=== PATIENT | male | born 1950 | race Caucasian/White ===

== ENCOUNTER 2018-09-23 21:45 | Observation (INO) ==
[2018-09-23 23:02] LABS: AGAP 15; ALB/GLOB RATIO 2.1; ALBUMIN 4.6 g/dL (3.5-5.0); ALKALINE PHOSPHATASE 75 U/L (32-122); BUN 12 mg/dL (8-22); CALCIUM 9.5 mg/dL (8.8-10.2); CHLORIDE 108 mmol/L (98-107); CK PROFILE 162 U/L (24-204); COSMO 290; ESTIMATED GFR > 60; GLUCOSE 125 mg/dL (70-104); GOT 38 U/L (10-34); GPT 39 U/L (10-44); POTASSIUM 4.2 mmol/L (3.5-5.1); SODIUM 145 mmol/L (136-145); TCO2 22 mmol/L (25-35); TOTAL BILIRUBIN 0.29 mg/dL (0.20-1.00); TOTAL PROTEIN 6.8 g/dL (6.3-8.3)
[2018-09-23 23:12] LABS: BASO# 0.03 X1000 (0.0-0.2); BASO% 0.3 % (0.0-0.8); EOS# 0.13 X1000 (0.0-0.7); EOS% 1.2 % (0.0-10.0); HEMATOCRIT 47.8 % (42.0-52.0); HEMOGLOBIN 15.8 g/dL (14.0-18.0); LYMPH# 1.12 X1000 (1.2-3.4); LYMPH% 10.3 % (20.5-51.1); MCH 29.9 PG (27-31); MCHC 33.1 g/dL (33-37); MCV 90.4 FL (81-99); MONO# 0.93 X1000 (0.11-0.59); MONO% 8.6 % (1.7-9.3); MPV 11.3 FL (7.4-10.4); NEUT# 8.66 X1000 (1.4-6.5); NEUT% 79.6 % (42.2-75.2); PLT 216 X1000 (130-400); RBC 5.29 XMIL (4.7-6.1); RDW 13.9 % (11.5-14.5); WBC 10.87 X1000 (4.8-10.8)
[2018-09-24] MEDS ORDERED: TYLENOL PO PRN (01:00)
[2018-09-24] MEDS ORDERED: LOVENOX SUBQ SCH (01:00)
[2018-09-24] MEDS ORDERED: ZOFRAN IV PRN (01:00)
[2018-09-24] MEDS ORDERED: NITROGLYCERIN SL PRN (01:00)
[2018-09-24] MEDS ORDERED: MORPHINE IV PRN (01:04)
[2018-09-24 01:39] LABS: HEMOGLOBIN A1C 6.1 % (4.8-6.0)
--- NOTE | 2018-09-24 05:42 | HISTORY AND PHYSICAL ---
CHIEF COMPLAINT: Chest pain. PRIMARY CARE PROVIDER: Keyur Mallory. HISTORY OF PRESENT ILLNESS: This is a very pleasant 67-year-old male who comes in tonight with substernal chest pain, did not radiate. He did not have nausea or diaphoresis. It lasted for roughly one hour. He said that it was sharp in nature. He has a torn right rotator cuff that he is about to have surgery on. He stated that he felt as if the pain may have been from his shoulder instead of from his chest, however, around 20-plus years ago he had coronary artery bypass grafting and then two years after that he had an additional episode of chest pain for which he had a stent placed. He was followed by Cardiology some time thereafter and from what he tells me, he was told he did not have to follow-up with Cardiology anymore. He does see Dr. Mallory on a regular basis. His initial laboratory data was unremarkable in the emergency room. He will be admitted in observation status for further evaluation and treatment. PAST MEDICAL HISTORY: 1. Coronary artery disease, status post CABG and stenting. 2. Hypertension. 3. Hyperlipidemia. PREVIOUS SURGICAL HISTORY: 1. CABG. 2. Cardiac stent. 3. Hernia repair. SOCIAL HISTORY: Lives with his daughter. No alcohol. He does not smoke. He does use chewing tobacco, however. No illicit drugs. FAMILY HISTORY: Positive for coronary artery disease and diabetes in first- degree relatives. ALLERGIES: No known drug allergies. HOME MEDICATIONS: A list of home medications has not been obtained. An order was placed for Nursing to reconcile home medications. These will be started when appropriate. REVIEW OF SYSTEMS: Fourteen point review of systems conducted with the patient. Pertinent positives listed above in the HPI. All other systems reviewed and found to be negative. PHYSICAL EXAMINATION: VITAL SIGNS: Temperature 98.2, pulse 69, respirations 18, blood pressure 160/90 , oxygen saturation 98% on room air. GENERAL: Pleasant 67-year-old male lying in the ER stretcher, answers all questions appropriately, is alert and oriented times 3. HEENT: Head is atraumatic, normocephalic. Pupils equal, round, reactive to light. Extraocular eye movement intact. Sclerae are anicteric. Conjunctiva is pink. Oral mucosa is moist. NECK: Supple. No JVD. No thyromegaly. Trachea is midline. No cervical lymphadenopathy. CARDIAC: S1, S2 appreciated. No murmurs, gallops, or rubs. LUNGS: Clear to auscultation bilaterally. No rhonchi, wheezes, rales. Symmetric rise and fall with respirations. ABDOMEN: Soft, nondistended, nontender. Bowel sounds present all 4 quadrants, normoactive. No pulsatile mass. No organomegaly. EXTREMITIES: No clubbing, cyanosis, or edema. Two-plus pedal pulses bilaterally. GENITOURINARY: Patient voids. No bladder distention. Otherwise deferred. NEUROLOGICAL: Alert and oriented times 3. No focal or motor deficits noted. Otherwise nonfocal examination. DIAGNOSTIC DATA: Chest x-ray: No acute disease. EKG: Right bundle branch block. LABORATORY DATA: WBC 10.87. Sodium 145. Potassium 4.2. Chloride 108. Carbon dioxide 22. BUN 12. Creatinine 1. Glucose 125. CK 162. Troponin 0.056. ASSESSMENT AND PLAN: 1. Chest pain. Rule out acute myocardial infarction. Patient has known history of coronary artery disease status post CABG and cardiac stenting. He takes a statin as well as blood pressure medication at home. Will restart these once they are reconciled. Check a lipid profile. Will defer to Dr. Mallory the need for echo or stress testing. 2. Hypertension. Will restart home medications once reconciled. 3. Hyperlipidemia. Restart statin once medications are reconciled in the computer. Check a lipid profile. 4. Mild hyperglycemia. Check hemoglobin A1c. Patient does not have a history of diabetes mellitus. 5. Torn right rotator cuff. Patient is going to have surgery in around two weeks. Will give p.r.n. pain medication. Further recommendations per patient clinical course. Dictated by KSENIA Pang for Chano Salazar MD cc: KSENIA Pang MD P. J. Reddy, MD Independent exam (which was essentially benign) and plan was done by me. Discussed the above plan of care with pt, and INSPECTION ENGINEER. Pt has high heart score and would benefit from further cardiac evaluation and optimization of risk factors. [facility]NOT OGDEN MEDICAL CENTERDallin
[2018-09-24] MEDS: PRILOSEC PO SCH ×2 (06:56→06:57)
--- NOTE | 2018-09-24 07:17 | Diag Imaging Result Doc PS360 ---
EXAM: CHEST-1 VIEW INDICATION: chest pain TECHNIQUE: One view COMPARISON: None. FINDINGS: The lungs are grossly clear. There is no discrete pleural fluid collection or pneumothorax. There are median sternotomy wires. The cardiomediastinal silhouette and central vasculature are grossly unremarkable, otherwise. IMPRESSION: No evidence of acute pathology by plain radiograph. Electronically signed by See Cameron 09/24/2018 7:14 AM
--- NOTE | 2018-09-24 07:19 | EKG Report ---
Test Performed on : 09/24/2018 07:06:27 AM Test Reason : CP Blood Pressure : / mmHG Vent. Rate : 069 BPM Atrial Rate : 069 BPM P-R Int : 142 ms QRS Dur : 132 ms QT Int : 424 ms P-R-T Axes : 062 -75 050 degrees QTc Int : 454 ms Normal sinus rhythm. with sinus arrhythmia. Possible Left atrial enlargement Right bundle branch block Left anterior fascicular block Bifascicular block Inferior infarct , age undetermined T wave abnormality, consider lateral ischemia Abnormal ECG When compared with ECG of 24-SEP-2018 00:18, (Unconfirmed) No significant change was found Unconfirmed Result
--- NOTE | 2018-09-24 07:22 | EKG Report ---
Test Performed on : 09/24/2018 00:18:39 AM Test Reason : chest pain Blood Pressure : / mmHG Vent. Rate : 066 BPM Atrial Rate : 066 BPM P-R Int : 140 ms QRS Dur : 134 ms QT Int : 446 ms P-R-T Axes : 060 -60 008 degrees QTc Int : 467 ms Normal sinus rhythm. Possible Left atrial enlargement Right bundle branch block Left anterior fascicular block Bifascicular block T wave abnormality, consider lateral ischemia Abnormal ECG When compared with ECG of 23-SEP-2018 22:01, (Unconfirmed) premature atrial complexes. are no longer present T wave inversion now evident in Anterolateral leads Unconfirmed Result
--- NOTE | 2018-09-24 07:36 | EKG Report ---
Test Performed on : 09/23/2018 10:01:50 PM Test Reason : CP Blood Pressure : / mmHG Vent. Rate : 072 BPM Atrial Rate : 072 BPM P-R Int : 138 ms QRS Dur : 134 ms QT Int : 428 ms P-R-T Axes : 038 -54 026 degrees QTc Int : 468 ms Sinus rhythm. with premature atrial complexes. Right bundle branch block Left anterior fascicular block Bifascicular block Abnormal ECG No previous ECGs available Unconfirmed Result
[2018-09-24] MEDS ORDERED: ASPIRIN PO SCH ×2 (09:00→10:15)
[2018-09-24 11:43] LABS: CK INDEX 10.1 (0.0-2.5); CK-MB 48.36 ng/mL (0.0-5.0)
[2018-09-24] MEDS: ASPIRIN PO SCH (11:45)
--- NOTE | 2018-09-24 11:48 | CARDIOLOGY CONSULTATION ---
DATE: 09/24/2018 HISTORY OF PRESENT ILLNESS: Mr. Cornelio Neal is a 67-year-old gentleman with a history of coronary artery disease, coronary artery bypass grafting, and this was in 1996 in [place]. Had the right coronary angioplasty in 1997 in [place]. He comes with complaints of having retrosternal chest discomfort with radiation to the right shoulder. He also has rotator cuff issues and torn on the right shoulder. Chest discomfort is retrosternal, lasted for about 20 minutes before he decided to come to the emergency room. Currently, he is pain-free. Chest pain not associated with any significant diaphoresis; however, he has been very active, never had retrosternal chest discomfort like this in the last so many years. He walks about 5 miles at least 3 to 4 times a week, and he is very active, goes hunting as well. REVIEW OF SYSTEM: General: A 14-point review of systems was done. GI system: There is no history of nausea, vomiting, diarrhea. There is no history of hematemesis or melena. Central nervous system: No focal weakness to suggest a CVA or TIA. system: There is no dysuria or hematuria. PAST MEDICAL HISTORY: 1. Coronary artery disease, status post 2-vessel coronary artery bypass grafting in [place]. This was in 1996. 2. In 1997, had angioplasty, stenting to the right coronary artery. 3. Hypertension. 4. Hyperlipidemia. 5. Rotator cuff right tear. 6. Hypertension. He is retired, lives with his daughter, very active. ALLERGIES: He is not known to be allergic to any medication. FAMILY HISTORY: Multiple family members have had coronary artery disease. PHYSICAL EXAMINATION: Vital Signs: Blood pressure was 159/76, heart rate 70. Cardiovascular system: Normal jugular venous pressure. There no thyromegaly. There is no carotid bruit. First and second heart sounds were heard. There is no S3, S4, gallop. Respiratory system: Normal air entry. There are no crepitations or rhonchi. Abdomen: Soft, nontender. There was no guarding or rigidity. Bowel sounds were heard. Central nervous system: Alert and was moving all 4 extremities. Examination of extremities revealed no pedal edema. HEENT: Atraumatic, normocephalic. Pupils were equal and reacting to light. ASSESSMENT AND PLAN: Mr. Cornelio Neal is a 67-year-old gentleman with history of hypertension, hyperlipidemia, coronary artery disease, status post coronary artery bypass grafting two-vessel 1996 followed by right coronary artery stenting in 1997, who comes with complaints of retrosternal chest discomfort. He has abnormal cardiac enzymes with a troponin of 0.162. Patient has non-Q-wave myocardial infarction. RECOMMENDATIONS: 1. We will plan for left heart catheterization. 2. In addition to aspirin, we will put him on Lovenox 1 mg/kg subcutaneous twice daily. 3. We will also add beta-blockers 25 mg twice daily to his medical regimen and Lipitor 40 mg to his medical regimen. 4. He also has torn right rotator cuff and management for that will defer. He was supposed to have surgery in a couple of weeks. However, we will plan for left heart catheterization tomorrow as discussed above. cc: MD Chano Vitale MD
[2018-09-24] MEDS: LOVENOX SUBQ SCH ×2 (11:56→22:47)
[2018-09-24] MEDS: LOPRESSOR PO SCH ×2 (11:56→22:01)
[2018-09-24 12:15] LABS: INR 0.93; PROTIME 13.3 Seconds (11.0-16.0)
--- NOTE | 2018-09-24 14:13 | ECHO REPORT ---
ORDER DATE: 09/24/2018 INDICATION: Embolism. FINDINGS: 1. The right atrium appears normal in size at 2.9 cm. 2. Mild tricuspid regurgitation. RV systolic pressure of 30. 3. Normal RV size and systolic function. 4. Mild pulmonic insufficiency. 5. Mild left atrial enlargement with a volume index of 28. 6. No mitral valve prolapse. There is mild mitral regurgitation. 7. A dilated left ventricle with an end-diastolic dimension of 5.8 cm. Normal wall thicknesses with a posterior and interventricular septal wall thickness of 0.9 cm each. Severely reduced LV systolic function with an estimated EF of 20%. The more apical portions of the anterior, lateral, inferior, and septal wall appear hypokinetic to akinetic with more prominent basilar hyperkinesis in all ya. This could be consistent with a possible Takotsubo type picture in the correct clinical situation. There does not appear to be any clear evidence of LV apical thrombus on this study. 8. The aortic valve opens well. It is trileaflet. There is mild insufficiency. No stenosis. 9. Aorta appears normal in visualized segments. 10. No pericardial effusion seen. cc: MD Paul Monroe MD Olakunle P. Akinsoto, MD
--- NOTE | 2018-09-24 19:41 | PROGRESS NOTE ---
DATE: 09/25/2018 SUBJECTIVE: A 67-year-old white male admitted to the hospital last night on the floor with chest pain. Currently pain free. Initial EKG has normal sinus with right bundle. Subsequent EKG showed T-wave inversion in the lateral precordial leads, and he had a bump in the CK and troponin. Denies any chest pain or shortness of breath. PAST MEDICAL HISTORY: Reviewed. PAST SURGICAL HISTORY: Reviewed. MEDICINES: Reviewed. ALLERGIES: Not known. OBJECTIVE: Vital Signs: Temperature is 98 degrees, pulse is 60, blood pressure 143/81. HEENT Exam: Within normal limits. JVD is normal. Chest: Bilateral air entry. Cardiovascular: Heart sounds are regular. No murmur. Abdomen: Belly is soft, nontender. Extremities: No peripheral edema noted. INVESTIGATIONS: CBC: White cell count 10, hematocrit 47, platelets 216,000, PT 13, INR 0.93. Initial cardiac enzymes are negative. Subsequent CK and troponin were positive. A1c 6.1. Cholesterol 157, LDL 108. ASSESSMENT AND PLAN: 1. A 67-year-old white male with existing heart disease, status post bypass in [place] 20 years ago came in with chest pain, atypical pain-free ruled in non-Q myocardial infarction. Discussed with the patient. We will transfer to the step-down unit. I did call the propulsion systems engineer developmental education instructor, Dr. Sears, probably will need a left heart catheterization. In the meantime, we will continue on aspirin, Lovenox 80 subcutaneous b.i.d., metoprolol 25 p.o. b.i.d., nitroglycerin as needed and morphine for pain. Also check the echocardiography. 2. Hyperlipidemia on Lipitor. 3. Hypertension on ramipril 2.5 daily. 4. Appreciate Cardiology consult. The patient is n.p.o. LEVEL OF DOCUMENTATION: 35 minutes. cc: MD Chano Singh MD MTDD
[2018-09-24] MEDS: LIPITOR PO SCH (22:01)
[2018-09-25 06:05] LABS: AGAP 10; BUN 15 mg/dL (8-22); CALCIUM 9.3 mg/dL (8.8-10.2); CHLORIDE 104 mmol/L (98-107); COSMO 283; CREATININE 0.9 mg/dL (0.7-1.2); ESTIMATED GFR > 60; GLUCOSE 120 mg/dL (70-104); MAGNESIUM 2.1 mg/dL (1.5-2.7); POTASSIUM 4.2 mmol/L (3.5-5.1); SODIUM 141 mmol/L (136-145); TCO2 27 mmol/L (25-35)
--- NOTE | 2018-09-25 08:00 | EKG Report ---
Test Performed on : 09/25/2018 07:33:42 AM Test Reason : chest pain Blood Pressure : / mmHG Vent. Rate : 058 BPM Atrial Rate : 058 BPM P-R Int : 160 ms QRS Dur : 138 ms QT Int : 528 ms P-R-T Axes : 040 -61 210 degrees QTc Int : 518 ms Sinus bradycardia. Right bundle branch block Left anterior fascicular block Bifascicular block Inferior infarct (cited on or before 24-SEP-2018) Marked T wave abnormality, consider lateral ischemia Abnormal ECG When compared with ECG of 24-SEP-2018 07:06, Inverted T waves have replaced nonspecific T wave abnormality in Inferior leads T wave inversion more evident in Anterolateral leads QT has lengthened Unconfirmed Result
[2018-09-25] MEDS ORDERED: HEPARIN 1000 UNITS/NS 2,000 UNIT/1,000 ML IV.SOLN ONE (08:11)
[2018-09-25] MEDS: PRILOSEC PO SCH (08:47)
[2018-09-25] MEDS: LOPRESSOR PO SCH ×2 (08:47→21:06)
[2018-09-25] MEDS: ASPIRIN PO SCH (08:48)
[2018-09-25 09:11] LABS: CK INDEX 5.2 (0.0-2.5); CK-MB 11.98 ng/mL (0.0-5.0)
[2018-09-25] MEDS ORDERED: MORPHINE ONE (09:48)
[2018-09-25] MEDS ORDERED: VERSED ONE (09:48)
[2018-09-25] MEDS ORDERED: ANESTHESIA PB SET 88 IN 5742 ONE (09:49)
[2018-09-25] MEDS ORDERED: NS 1,000 ML ONE (09:49)
[2018-09-25] MEDS ORDERED: CLAVE TWINSITE 32 IN 11959 ONE (09:49)
[2018-09-25] MEDS ORDERED: NS 1,000 ML IV SCH (11:30)
--- NOTE | 2018-09-25 11:30 | EKG Report ---
Test Performed on : 09/25/2018 11:23:32 AM Test Reason : post heart cath Blood Pressure : / mmHG Vent. Rate : 053 BPM Atrial Rate : 053 BPM P-R Int : 160 ms QRS Dur : 138 ms QT Int : 538 ms P-R-T Axes : 051 -65 217 degrees QTc Int : 504 ms Sinus bradycardia. Right bundle branch block Left anterior fascicular block Bifascicular block Inferior infarct (cited on or before 24-SEP-2018) Marked T wave abnormality, consider lateral ischemia Abnormal ECG When compared with ECG of 25-SEP-2018 07:33, (Unconfirmed) No significant change was found Unconfirmed Result
[2018-09-25] MEDS: NICODERM PATCH TD SCH (15:03)
[2018-09-25] MEDS: LIPITOR PO SCH (21:06)
[2018-09-26 08:06] VITALS: BP 129/74
[2018-09-26] MEDS: NICODERM PATCH TD SCH (08:16)
[2018-09-26] MEDS: ASPIRIN PO SCH (08:16)
[2018-09-26] MEDS: LOPRESSOR PO SCH (08:16)
[2018-09-26] MEDS: PRILOSEC PO SCH (08:16)
[2018-09-26] MEDS ORDERED: COZAAR PO SCH (09:00)
[2018-09-26] MEDS ORDERED: PLAVIX PO SCH (09:00)
--- NOTE | 2018-09-28 15:07 | DISCHARGE SUMMARY ---
ADMISSION DATE: 09/24/2018 DISCHARGE DATE: 09/26/2018 DISCHARGING DIAGNOSIS: Acute non-ST elevated myocardial infarction. SECONDARY DIAGNOSES: 1. History of coronary artery disease status post bypass in 2001 at [facility]. 2. Hypertension. 3. Hyperlipidemia. 4. Benign prostatic hypertrophy. CONSULTS: Dr. Sears. PROCEDURES: 1. Cardiac cath report. Basically occluded SVG graft to the LAD and significant LAD stenosis. No acute disease. 2. Echocardiography report. Ejection fraction is 20%. Significant hypokinesis anterior wall, lateral wall, inferior wall septal wall. No significant valvular heart disease seen. BRIEF HISTORY: Please see the H P that was done by hospitalist. In brief, he is a 67-year-old white gentleman basically admitted to the hospital with chest pain. Initial EKG was unremarkable. Subsequent EKG showed incomplete right bundle with T-wave inversion in the lateral precordial leads. He had a positive cardiac enzymes, CK-MB index and troponin. Peak CK was around 250. The patient was asymptomatic. Dr. Sears was consulted. He was given aspirin, Lovenox and beta- blockers. Subsequently, left heart catheterization was done by Dr. Calvin Cee. It has been reported the patient needs re-bypass sent as an outpatient workup with Dr. Albino Pineda. DISCHARGE INSTRUCTIONS: As follows: 1. Lipitor 40 mg daily, B12 1000 mcg daily, Paxil 20 daily, aspirin 81 mg daily, Losartan 50 daily, Plavix 75 daily, Prilosec 20 daily. 2. He will follow up as an outpatient after the bypass surgery from [facility] by Dr. Albino Pineda. cc: MD Chano Singh MD William D. Denney, MD Ashish K. Basu, MD
--- NOTE | 2018-09-28 22:21 | PROVIDER DOCUMENTATION ---
This chart was entered by Todd Read Scribe, acting as scribe for Jeremiah Wang MD. 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 He reports a hx of [place] with a CABG. Patient states he may be having muscular pain in chest wall ; he has been engaging in lifting heavy objects lately at home whiles doing some chores Chest Pain Radiation: reports: no radiation Quality of Pain: reports: aching Severity in ED: moderate (current 4 out of 10.) Onset/Duration: 1-3 hours ago Timing: still present Context/Activities at Onset: reports: none Modifying Factors: improves with: nothing Associated Symptoms: denies: diaphoresis, dizziness, fever/chills, shortness of breath Aspirin Treatment Today: no aspirin today Similar Symptoms Previously?: Yes Recently Seen Here or By Another Healthcare Provider: No Review of Systems - Adult - REVIEW OF SYSTEMS - ADULT Constitutional: denies: chills, fatique Eyes: reports: no symptoms reported Ears, Nose, Mouth & Throat: reports: no symptoms reported Cardiovascular: reports: chest pain. denies: edema, palpitations Respiratory: denies: cough, shortness of breath, wheezing Gastrointestinal: denies: nausea, other Genitourinary: reports: no symptoms reported Musculoskeletal: denies: back pain, neck pain Integumentary: reports: no symptoms reported Neurological: denies: dizziness/vertigo, headache/migraines Psychiatric: reports: no symptoms reported Endocrine: reports: no symptoms reported Hematologic/Lymphatic: reports: no symptoms reported Allergic/Immunologic: reports: no symptoms reported All Other Systems: Reviewed and Negative Past History - Adult - PAST MEDICAL HISTORY-ADULT Review of Records: reports: Old Records Reviewed, Nursing Assessment Review, Medications Reviewed - SOCIAL HISTORY Smoking: non-smoker Substance Use: none/never Living Situation: family Physical Exam-General - PHYSICAL EXAM-ADULT Initial Vital Signs Reviewed: Yes - CONSTITUTIONAL General Appearance: appears well, alert, no apparent distress - EYES Eyes: PERRL/EOMI, pink conjunctivae - HEAD, EARS, NOSE, MOUTH & THROAT HENMT: moist mucous membranes, normal ENT inspection - NECK Neck: non-tender, full range of motion, supple - RESPIRATORY Respiratory: lungs clear, normal breath sounds. negative: chest non-tender (Tender to palpation) - CARDIOVASCULAR Cardiovascular: normal peripheral pulses, regular rate, rhythm - CHEST (BREASTS) Chest/Breast: tenderness (on palpation of anterior chest wall bilaterally) - GASTROINTESTINAL (ABDOMEN) Abdominal Exam: normal bowel sounds, non tender, soft - MUSCULOSKELETAL Back Exam: normal inspection, no CVA tenderness, no vertebral tenderness Extremity: negative: normal range of motion (limited in right shoulder on active motion) - SKIN Integumentary: normal color, normal turgor, warm/dry - NEUROLOGIC Neurologic: grossly normal, no motor/sensory deficits - PSYCHIATRIC Psych/Mental Status: normal mood/affect, normal thought content, normal thought process, oriented x 3 - HEART Score HEART Score: History: Slightly Suspicious HEART Score: ECG: Non-Specific Repolarization Disturbance/LBBB/PM HEART Score: Age: > or = 65 Years HEART Score: Risk Factors for Atherosclerotic Disease: > or = 3 Risk Factors or History of Atherosclerotic Disease HEART Score: Troponin: < or = Normal Limit Total HEART Score:: 5 Progress - PLAN OF CARE/RESULTS Progress/Plan/Lab Results: Vital Signs - 8 hr 09/23/18 22:04 09/23/18 23:10 09/23/18 23:12 Temperature 98.2 F Pulse Rate 69 69 Respiratory Rate 18 25 H Blood Pressure 160/91 159/91 O2 Sat by Pulse Oximetry 98 96 95 09/23/18 23:13 09/23/18 23:20 09/23/18 23:30 Temperature Pulse Rate 71 93 H 68 Respiratory Rate 18 16 21 Blood Pressure 159/91 O2 Sat by Pulse Oximetry 95 96 95 09/23/18 23:32 09/23/18 23:40 09/23/18 23:50 Temperature Pulse Rate 67 68 67 Respiratory Rate 19 11 L 19 Blood Pressure 155/99 O2 Sat by Pulse Oximetry 94 L 96 97 09/24/18 00:00 09/24/18 00:02 09/24/18 00:10 Temperature Pulse Rate 69 66 71 Respiratory Rate 23 16 17 Blood Pressure 161/95 O2 Sat by Pulse Oximetry 92 L 95 95 Laboratory Results - last 24 hr 09/23/18 09/23/18 09/23/18 22:19 22:19 22:19 WBC 10.87 H RBC 5.29 Hgb 15.8 Hct 47.8 MCV 90.4 MCH 29.9 MCHC 33.1 RDW Std Deviation 13.9 Plt Count 216 MPV 11.3 H Immature Gran % (Auto) 0.0 Neut % (Auto) 79.6 H Lymph % (Auto) 10.3 L Ransom % (Auto) 8.6 Eos % (Auto) 1.2 Baso % (Auto) 0.3 Immature Gran # (Auto) 0.00 Neut # (Auto) 8.66 H Lymph # (Auto) 1.12 L Ransom # (Auto) 0.93 H Eos # (Auto) 0.13 Baso # (Auto) 0.03 Sodium 145 Potassium 4.2 Chloride 108 H Carbon Dioxide 22 L Anion Gap 15 BUN 12 Creatinine 1.0 Estimated GFR/1.73 m2 > 60 BUN/Creatinine Ratio 12 Glucose 125 H Calculated Osmolality 290 Calcium 9.5 Total Bilirubin 0.29 AST 38 H ALT 39 Alkaline Phosphatase 75 Creatine Kinase 162 Troponin T 0.056 Total Protein 6.8 Albumin 4.6 Globulin 2.2 Albumin/Globulin Ratio 2.1 Orders Category Date Time Status CHEST-1 VIEW [RAD] Stat Exams 09/23/18 22:29 Taken CBC WITH ELECTRONIC DIFF [HEME] Stat Lab 09/23/18 22:19 Completed CK PROFILE [SP CHEM] Stat Lab 09/23/18 22:19 Completed CK PROFILE [SP CHEM] Stat Lab 09/24/18 00:33 Received COMPREHENSIVE METABOLIC PANEL [CHEM] Stat Lab 09/23/18 22:19 Completed TROPONIN T Stat Lab 09/23/18 22:19 Completed TROPONIN T Stat Lab 09/24/18 00:33 Received EKG [EKG] Stat Ther 09/24/18 00:16 Ordered Result Diagrams: 09/23/18 22:19 09/23/18 22:19 - REASSESSMENT Reassessment #1 Time Reassessed: 00:23 Status: improving (less chest pain; no shortness of breath; no palpitations; reproducible anterior chest wall pain on palpation) - EKG 1 Time of EKG reading by physician:: 22:01 EKG Read and Signed by:: Jeremiah Wang EKG Interpretation (*Must complete 3 of following elements*): Abnormal Rate: 72 Rhythm: Sinus Rhythm with PAC QRS: RBB Comments: left anterior fascicular block and Bifascicular block 2 Time of EKG reading by physician:: 00:18 EKG Read and Signed by:: Jeremiah Wang EKG Interpretation (*Must complete 3 of following elements*): Abnormal (left anterior fascicular block and Bifascicular block; t wave abnormality, consider lateral ischemia) Rate: 66 QRS: RBB - XRAY 1 XRAY Study: Chest Impression: See EMR Report - CONSULTS/PCP/HOSPITALIST Notification #1 *Consult/PCP/Hospitalist*: Dr. Salazar Time Discussed: 00:47 Consult Disposition: Admit Departure - Departure Date of Disposition Decision: 09/24/18 Time of Disposition Decision: 00:47 DIAGNOSIS: Chest pain Qualifiers: Chest pain type: unspecified Qualified Code(s): R07.9 - Chest pain, unspecified Disposition: ADMITTED INPATIENT 09 Certified Medical Emergency: Emergent Condition: Fair - Critical Care Note This patient required my direct & personal management of CC.: No Attestation - Physician/ ANA MARIA Attestation The physician spent face to face time with patient:: Yes Advanced Practice Provider documentation review:: Supervising physician onsite and consulted in the evaluation and care of this patient. The physician did have a face to face encounter with the patient. This chart was documented by the indicated scribe, (Todd Read Scribe) and accurately reflects the services I performed and decisions made by Felipe villalba Kof i X., MD, as attested by the provider's signature.
--- NOTE | 2018-10-01 08:45 | CARDIAC CATH REPORT ---
DATE: 09/25/2018 PROCEDURE PERFORMED: Left heart catheterization and selective coronary angiography and left ventriculography with angiography of saphenous vein graft to left anterior descending coronary and saphenous vein graft to the right coronary. ENTRY SITE: Right femoral artery. CATHETERS USED: 5-Cypriot JL4, JR4, and angled pigtail. TECHNIQUE: After intravenous sedation with morphine and Versed, local anesthesia with lidocaine was applied over right femoral artery. Arterial access was established with placement of a 5- Cypriot sheath in right femoral artery using modified Seldinger technique. Selective coronary angiography was performed followed by angiography of saphenous vein grafts. Thereafter left heart catheterization and left ventriculography were performed. Upon completion of procedure, arterial sheath was removed right femoral artery and hemostasis facilitated with manual pressure. Patient tolerated procedure without apparent complications. FINDINGS: Hemodynamics: Aortic pressure 123/64 with a mean of 87, left ventricular pressure 115/EDP of 13. COMMENTS: On hemodynamics there is no significant gradient across aortic valve demonstrated on pullback left ventricle. ANGIOGRAPHY: 1. Left ventriculogram. Left ventricle is of normal size. The very apex left ventricle appears akinetic. There is hypokinesis of the basal inferior wall. There is no significant mitral regurgitation. Estimated left ejection fraction approximately 30%. 2. Left main coronary. Left main coronary artery demonstrates mild to moderate atherosclerotic narrowing distally. This is contiguous with atherosclerotic disease in the very proximal left anterior descending coronary. 3. Left anterior descending coronary. Left anterior descending coronary demonstrates a segment of severe atherosclerosis beginning at its ostium through proximal vessel. The ostium is approximately 70-80% diameter narrowing and the more distal end of this segment of atherosclerosis is very severely narrowed to about 90% diameter narrowing before origin of diagonal branch. 4. Ramus intermedius branch. A ramus intermedius branch is present and demonstrates mild to moderate atherosclerotic narrowing in its ostium. 5. Left circumflex coronary. Left circumflex coronary is free of significant coronary stenosis. 6. Right coronary. The dominant right coronary demonstrates a stent after the proximal 1/3 of the vessel which demonstrates very mild narrowing. The distal right coronary artery after the middle 1/3 of the vessel demonstrates a focal area of moderate to severe (70 to 80 percent) focal narrowing. 7. Saphenous vein graft to left anterior descending coronary. This graft is patent . The distal graft demonstrates a long calcified atherosclerotic plaque which is eccentric and demonstrates approximately 80% narrowing. The apical portion of left anterior descending artery demonstrates a focal area of moderate (50%) narrowing. The very distal left anterior descending coronary demonstrates diffuse atherosclerosis. 8. Saphenous vein graft to the right coronary. This graft is occluded. CONCLUSIONS: 1. Estimated left ejection fraction approximately 30% with akinesis of very apex left ventricle and basal inferior hypokinesis on DELEON projection. 2. Right dominant coronary anatomy as described with very severe atherosclerotic narrowing and ostial and proximal left anterior descending coronary as described, mild moderate atherosclerotic narrowing at ostium of ramus intermedius branch and moderate to severe stenosis in the distal right coronary as described. Saphenous vein graft to left anterior descending coronary demonstrates severe eccentric stenosis distally and saphenous vein graft to the right coronary is occluded. RECOMMENDATIONS: Recommend CV surgery consultation to consider redo coronary bypass grafting. cc: MD Chano Dillon MD MTDD
== END 2018-09-26 11:15 | disposition home or self-care (01) ==
LOC: 3N 21:45 → ED 21:45 → 3S 09-24 13:03
PROVIDERS: ADMIT Internal Medicine; ATTEND Internal Medicine
CPT/HCPCS: 71010; 71045; 80048; 80053; 80061; 82550; 82553; 82565; 83036; 83721; 83735; 84484; 85025; 85610; 85730; 93005; 93010; 93306; 93459; 94761; 96372; 99285; A9270; G0378; J1644; J1650; J2250; J2270; J7030; Q9967